=== PATIENT | male | born 1980 | race African-American/Black ===

== ENCOUNTER 2017-06-19 17:32 | Emergency (ER) | payer OTHER ==
[~2017-06-19] VITALS: Ht 180.3 cm; Wt 71.2 kg
[2017-06-19 17:38] VITALS: Ht 180.3 cm; Wt 71.2 kg
[2017-06-19 18:53] LABS: BASOPHIL % 0.4 % (0-2); PLATELET COUNT 170 x10^3mcL (130-400)
[2017-06-19 18:54] LABS: RED CELL DISTRIBUTION WIDTH 15.7 % (11.5-14.5)
[2017-06-19 19:00] LABS: CALCIUM 8.6 mg/dL (8.5-10.1); CARBON DIOXIDE 28.5 mmol/L (21-32); CHLORIDE SERUM 106 mmol/L (98-107); GFR1 > 60 mL/min; GLUCOSE SERUM 97 mg/dL (74-106); SODIUM SERUM 142 mmol/L (136-145)
[2017-06-19 19:00] LABS: microscopic required? NO
[2017-06-19 19:12] LABS: ALBUMIN 3.7 g/dL (3.4-5.0); ALKALINE PHOSPHATASE 49 U/L (46-116); ALT/SGPT 31 U/L (16-63); AST/SGOT 23 U/L (15-37); BILIRUBIN TOTAL 0.71 mg/dL (0.20-1.00); FREE T4 0.86 ng/dL (0.76-1.46); TOTAL PROTEIN, SERUM 7.2 g/dL (6.4-8.2)
[2017-06-19 19:13] LABS: urine erythrocyte NEGATIVE (NEGATIVE)
[2017-06-19 19:25] LABS: AMPHETAMINE QUAL UR NONE DETECTED (NEG <=1000)
[2017-06-19 22:48] VITALS: BP 115/70
== END 2017-06-19 22:48 | disposition home or self-care (01) ==
LOC: ED 17:32
PROVIDERS: Emergency Medicine
DX: R07.89 Other chest pain (principal); I48.91 Unspecified atrial fibrillation; R53.1 Weakness; R06.02 Shortness of breath; R11.10 Vomiting, unspecified; R19.7 Diarrhea, unspecified
CPT/HCPCS: 36415; 84439; 87804; Q0092